=== PATIENT | male | born 1985 | race Caucasian/White ===

== ENCOUNTER 2022-08-21 10:54 | Emergency (ER) | payer SELFPAY ==
[~2022-08-21] VITALS: Ht 182.9 cm; Wt 95.2 kg
--- NOTE | 2022-08-21 19:34 | EKG ---
[facility] [address] [facility] [place] [address] Signed Normal sinus rhythm Normal ECG No previous ECGs available Confirmed by Tati Mortensen MD () on 08/21/2022 7:34:11 PM Electronically Signed By: TATI MORTENSEN MD 08/21/221933 PATIENT NAME: ARIAN BENNETT Electrocardiogram DATE OF : 89 PHYSICIAN: TTAI MORTENSEN MD REPORT #: [id number] REPORT IS CONFIDENTIAL AND NOT TO BE RELEASED WITHOUT AUTHORIZATION
== END 2022-08-21 11:42 | disposition left against medical advice (07) ==
LOC: ED 10:54
DX: R07.2 Precordial pain (principal); F10.10 Alcohol abuse, uncomplicated
CPT/HCPCS: 36415; 71045; 80053; 83690; 83735; 84484; 85025; 93005; 93010; 99285-25; J7042